=== PATIENT | male | born 1950 | race Caucasian/White ===

== ENCOUNTER 2022-10-17 07:34 | Outpatient (CLI) | payer MEDICARE | END 2022-10-17 07:35 | disposition home or self-care (01) | LOC: CSHCP 07:34 | PROVIDERS: ATTEND Internal Medicine Critical Care Medicine | DX: J44.9 Chronic obstructive pulmonary disease, unspecified (principal) | CPT/HCPCS: 94060; 94726; 94729; 94760 ==